=== PATIENT | male | born 1940 | race Caucasian/White ===

== ENCOUNTER 2017-10-10 10:42 | Day surgery (SDC) | payer OTHER ==
[~2017-10-10 10:42] MED LIST: MYDRIACIL OPHTH 1 DOSE AFFEYE ONE
[2017-10-10] MEDS ORDERED: TETRACAINE 0.5% OPHTH 1 DOSE AFFEYE ONE ×4 (12:45→14:17)
[2017-10-10] MEDS ORDERED: VIGAMOX 0.5% OPHTH 1 DOSE AFFEYE ONE ×5 (12:50→14:29)
[2017-10-10] MEDS: NS 500 ML IV 500 ML IV ONE (12:52)
[2017-10-10] MEDS ORDERED: PROLENSA OPHTH 1 DOSE AFFEYE ONE (13:01)
[2017-10-10] MEDS ORDERED: ALPHAGAN-P OPHTH 1 DOSE AFFEYE ONE (13:02)
[2017-10-10] MEDS ORDERED: CYCLOGYL 1% OPHTH 1 DOSE OP ONE ×3 (13:03→13:05)
[2017-10-10] MEDS ORDERED: MYDRIACIL OPHTH 1 DOSE AFFEYE ONE ×2 (13:03→13:04)
[2017-10-10] MEDS ORDERED: AK-DILATE 2.5% OPHTH 1 DOSE OP ONE ×3 (13:03→13:05)
[2017-10-10] MEDS ORDERED: BETADINE OPHTH SOLN 5% EACHEYE ONE (14:08)
[2017-10-10] MEDS ORDERED: ADRENALINE CHL INJ IJ ONE ×2 (14:11→14:17)
[2017-10-10] MEDS ORDERED: BSS OPHTH (PLAIN) 500 ML with VANCOMYCIN HCL 500 MG VIAL 25 MG, ADRENALINE CHL INJ 1 MG IR ONE ×6 (14:11)
[2017-10-10] MEDS ORDERED: DUOVISC IO ONE ×2 (14:11→14:17)
[2017-10-10] MEDS ORDERED: XYLOCAINE-MPF 1% IJ ONE ×2 (14:11→14:17)
[2017-10-10 14:48] VITALS: BP 182/87
== END 2017-10-10 14:52 | disposition home or self-care (01) ==
LOC: SURG1 10:42
PROVIDERS: ATTEND Ophthalmology
PROC: 08RK3JZ Replacement of Left Lens with Synthetic Substitute, Percutaneous Approach (ICD-10-PCS; principal; 2017-10-10 20:15)
PROC: 08DK3ZZ Extraction of Left Lens, Percutaneous Approach (ICD-10-PCS; principal; 2017-10-10 20:15)
DX: H25.12 Age-related nuclear cataract, left eye (principal); H25.012 Cortical age-related cataract, left eye
CPT/HCPCS: 99100; A4217; J0170; J3370

== ENCOUNTER 2017-11-07 07:41 | Day surgery (SDC) | payer OTHER ==
[2017-11-07] MEDS ORDERED: TETRACAINE 0.5% OPHTH 1 DOSE AFFEYE ONE ×2 (07:42→10:41)
[2017-11-07] MEDS ORDERED: VIGAMOX 0.5% OPHTH 1 DOSE AFFEYE ONE ×5 (07:45→11:08)
[2017-11-07] MEDS ORDERED: PROLENSA OPHTH 1 DOSE AFFEYE ONE (07:56)
[2017-11-07] MEDS ORDERED: ALPHAGAN-P OPHTH 1 DOSE AFFEYE ONE (08:00)
[2017-11-07] MEDS ORDERED: NS 500 ML IV 500 ML IV ONE (08:02)
[2017-11-07] MEDS ORDERED: CYCLOGYL 1% OPHTH 1 DOSE OP ONE ×3 (08:05→08:13)
[2017-11-07] MEDS ORDERED: MYDRIACIL OPHTH 1 DOSE AFFEYE ONE ×3 (08:05→08:13)
[2017-11-07] MEDS ORDERED: AK-DILATE 2.5% OPHTH 1 DOSE OP ONE ×3 (08:05→08:13)
[2017-11-07] MEDS ORDERED: DIPRIVAN VIAL ONE (10:29)
[2017-11-07] MEDS ORDERED: BETADINE OPHTH SOLN 5% EACHEYE ONE (10:41)
[2017-11-07] MEDS ORDERED: BSS OPHTH (PLAIN) 500 ML with VANCOMYCIN HCL 500 MG VIAL 25 MG, ADRENALINE CHL INJ 1 MG IR ONE ×3 (10:59)
[2017-11-07] MEDS ORDERED: XYLOCAINE-MPF 1% IJ ONE (10:59)
[2017-11-07] MEDS ORDERED: DUOVISC IO ONE (10:59)
[2017-11-07] MEDS ORDERED: ADRENALINE CHL INJ IJ ONE (10:59)
[2017-11-07 11:31] VITALS: BP 167/84
== END 2017-11-07 11:32 | disposition home or self-care (01) ==
LOC: SURG1 07:41
PROVIDERS: ATTEND Ophthalmology
PROC: 08RJ3JZ Replacement of Right Lens with Synthetic Substitute, Percutaneous Approach (ICD-10-PCS; principal; 2017-11-07 11:30)
PROC: 08DJ3ZZ Extraction of Right Lens, Percutaneous Approach (ICD-10-PCS; principal; 2017-11-07 11:30)
DX: H25.011 Cortical age-related cataract, right eye (principal); H25.11 Age-related nuclear cataract, right eye
CPT/HCPCS: 99100; A4217; J0170; J3370; J3490